=== PATIENT | female | born 1950 | race Caucasian/White ===

== ENCOUNTER 2023-01-27 06:34 | Emergency (ER) | payer OTHER ==
[~2023-01-27] VITALS: Ht 157.5 cm; Wt 62.6 kg
[2023-01-27] MEDS ORDERED: ATORVASTATIN CA20 MG (06:49)
[2023-01-27] MEDS ORDERED: METOPROLOL SUCC50 MG (06:50)
[2023-01-27] MEDS ORDERED: FOLIC ACID1 MG (06:50)
[2023-01-27] MEDS ORDERED: VALSARTAN-HCTZ1 EAC4 (06:50)
== END 2023-01-27 10:57 | disposition home or self-care (01) ==
LOC: ER 06:34
DX: U07.1 COVID-19 (principal)

== ENCOUNTER 2025-03-13 09:07 | Emergency (ER) | payer OTHER ==
[~2025-03-13] VITALS: Ht 157.5 cm; Wt 63.0 kg
[~2025-03-13 09:07] MED LIST: ATORVASTATIN CA20 MG; FOLIC ACID1 MG; METOPROLOL SUCC50 MG; VALSARTAN-HCTZ1 EAC4
[2025-03-13] MEDS ORDERED: ARICEPT10 MG (09:20)
[2025-03-13] MEDS ORDERED: GUAIFENESIN 200 MG/10 ML BLIST.PACK PO ONE (09:30)
[2025-03-13] MEDS ORDERED: ACETAMINOPHEN 500 MG GEL..CAP PO ONE (09:30)
[2025-03-13 09:51] LABS: COVID-19 AG NEGATIVE (NEGATIVE)
== END 2025-03-13 10:21 | disposition home or self-care (01) ==
LOC: ER 09:11
PROVIDERS: General Practice
DX: J02.9 Acute pharyngitis, unspecified (principal); I10 Essential (primary) hypertension; Z20.822 Contact with and (suspected) exposure to COVID-19